=== PATIENT | male | born 1985 | race African-American/Black ===

== ENCOUNTER 2025-10-08 16:14 | Emergency (ER) | payer MEDICAID, OTHER | END 2025-10-08 17:25 | disposition home or self-care (01) | LOC: BURERS 16:14 | DX: Z03.823 Encounter for observation for suspected inserted (injected) foreign body ruled out (principal); E10.9 Type 1 diabetes mellitus without complications; Z79.899 Other long term (current) drug therapy; Z79.4 Long term (current) use of insulin | CPT/HCPCS: 99284 ==